=== PATIENT | female | born 1945 | race Two or more races ===

== ENCOUNTER 2019-05-17 13:55 | Outpatient (CLI) | payer OTHER | END 2019-05-17 13:58 | disposition home or self-care (01) | LOC: NUCLEAR 13:55 | DX: M81.0 Age-related osteoporosis without current pathological fracture (principal) ==

== ENCOUNTER 2020-12-24 12:52 | Outpatient (CLI) | payer OTHER | END 2020-12-24 12:54 | disposition home or self-care (01) | LOC: RAD 12:52 | PROVIDERS: ATTEND Internal Medicine Rheumatology | DX: M17.0 Bilateral primary osteoarthritis of knee (principal) ==

== ENCOUNTER 2021-06-02 13:16 | Outpatient (CLI) | payer OTHER | END 2021-06-02 13:21 | disposition home or self-care (01) | LOC: NUCLEAR 13:16 | PROVIDERS: ATTEND Family Medicine | DX: M81.0 Age-related osteoporosis without current pathological fracture (principal) ==

== ENCOUNTER 2022-05-29 14:20 | Emergency (ER) | payer OTHER ==
[~2022-05-29] VITALS: Ht 157.5 cm; Wt 70.3 kg
[2022-05-29] MEDS ORDERED: ZOLOFT50 MG PO (14:48)
[2022-05-29] MEDS ORDERED: AROMASIN25 MG PO (14:48)
[2022-05-29] MEDS ORDERED: NORVASC2.5 M1 PO (14:49)
[2022-05-29] MEDS ORDERED: AVAPRO300 MG PO (14:49)
[2022-05-29] MEDS ORDERED: LIPITOR20 MG PO (14:49)
[2022-05-29] MEDS ORDERED: CARDURA1 MG PO (14:50)
[2022-05-29] MEDS ORDERED: SINGULAIR10 MG PO (14:51)
[2022-05-29] MEDS ORDERED: ZYRTEC10 M3 PO (14:51)
[2022-05-29] MEDS ORDERED: NASACORT16.9 ML (14:52)
== END 2022-05-29 22:07 | disposition home or self-care (01) ==
LOC: ER 14:20
DX: R55 Syncope and collapse (principal); R42 Dizziness and giddiness; I10 Essential (primary) hypertension; Z88.6 Allergy status to analgesic agent; Z88.2 Allergy status to sulfonamides

== ENCOUNTER 2022-06-22 12:20 | Outpatient (CLI) | payer OTHER ==
[~2022-06-22 12:20] MED LIST: AROMASIN25 MG PO; AVAPRO300 MG PO; CARDURA1 MG PO; LIPITOR20 MG PO; NASACORT16.9 ML; NORVASC2.5 M1 PO; SINGULAIR10 MG PO; ZOLOFT50 MG PO; ZYRTEC10 M3 PO
== END 2022-06-22 12:29 | disposition home or self-care (01) ==
LOC: RAD 12:20
PROVIDERS: ATTEND Internal Medicine Pulmonary Disease
DX: J45.41 Moderate persistent asthma with (acute) exacerbation (principal)

== ENCOUNTER 2025-02-15 09:53 | Emergency (ER) | payer OTHER ==
[~2025-02-15] VITALS: Ht 157.5 cm; Wt 70.8 kg
[2025-02-15] MEDS ORDERED: LIDOCAINE HCL 1% 10ML VIAL PERCUT ONE (11:00)
[2025-02-15] MEDS ORDERED: PEPCID AC20 MG PO (13:23)
[2025-02-15] MEDS ORDERED: CEFUROXIME500 MG PO (13:23)
== END 2025-02-15 14:53 | disposition home or self-care (01) ==
LOC: ER 09:53
DX: S81.022A Laceration with foreign body, left knee, initial encounter (principal); W18.39XA Other fall on same level, initial encounter; Y93.89 Activity, other specified; Y92.89 Other specified places as the place of occurrence of the external cause; Z88.2 Allergy status to sulfonamides; Z88.6 Allergy status to analgesic agent; Z88.1 Allergy status to other antibiotic agents; I10 Essential (primary) hypertension; Z85.3 Personal history of malignant neoplasm of breast; S52.041A Displaced fracture of coronoid process of right ulna, initial encounter for closed fracture; S52.121A Displaced fracture of head of right radius, initial encounter for closed fracture
CPT/HCPCS: 12004; 29125; 70450; 71045; 73130; 73564; 73660; 96372; 99284; J3490